=== PATIENT | female | born 1965 | race Caucasian/White ===

== ENCOUNTER → 2018-03-14 | Outpatient (CLI) | payer OTHER ==
[2018-03-14 18:19] LABS: ALBUMIN 3.7 gm/dl (3.1-4.5); ALKALINE PHOSPHATASE 131 U/L (45-117); BUN 23 mg/dl (7-24); CHLORIDE 106 mmol/L (98-107); CREATININE 0.91 mg/dL (0.55-1.02); POTASSIUM 4.1 mmol/L (3.5-5.1); SGOT/AST 36 IU/L (3-35); SGPT/ALT 60 U/L (12-78); SODIUM 142 mmol/L (136-145); TOTAL PROTEIN 7.2 gm/dL (6.4-8.2)
== END | disposition home or self-care (01) ==
LOC: LAB 17:30
PROVIDERS: Nurse Practitioner Primary Care
DX: R53.83 Other fatigue (principal); R63.8 Other symptoms and signs concerning food and fluid intake

== ENCOUNTER → 2018-04-19 | Outpatient (CLI) | payer OTHER ==
[~2018-04-19] MED LIST: CORTEF10 M1 PO; CORTEF5 M1 PO; PROZAC20 MG PO
[2018-04-19 07:45] VITALS: BP 126/37
[2018-04-19 08:16] LABS: BASO % 0.4 % (0.0-1.0); EOS # 0.4 10*3/uL (0.0-0.4); EOS % 5.5 % (1.0-4.0); HEMATOCRIT 43.5 % (37.0-47.0); HEMOGLOBIN 14.3 g/dl (12.0-16.0); LYMPH # 2.1 10*3/uL (1.3-4.4); LYMPH % 29.4 % (27.0-41.0); MEAN CELL VOLUME 95.2 fl (81.0-99.0); MEAN CORPUSCULAR HGB 31.3 pg (27.0-31.0); MEAN CORPUSCULAR HGB CONC 32.9 g/dl (33.0-37.0); MEAN PLATELET VOLUME 10.7 fl (9.6-12.3); MONO # 0.5 10*3/uL (0.1-1.0); MONO % 7.3 % (3.0-9.0); NEUT % 57.1 % (47.0-73.0); PLATELET COUNT AUTOMATED 315 10*3/uL (130-400); RED BLOOD COUNT 4.57 10*6/uL (4.10-5.10)
[2018-04-19 08:21] LABS: ALBUMIN 3.6 gm/dl (3.1-4.5); ALKALINE PHOSPHATASE 116 U/L (45-117); BUN 18 mg/dl (7-24); CHLORIDE 104 mmol/L (98-107); CREATININE 0.89 mg/dL (0.55-1.02); FREE T4 0.75 ng/dl (0.76-1.46); POTASSIUM 3.9 mmol/L (3.5-5.1); SGOT/AST 59 IU/L (3-35); SGPT/ALT 77 U/L (12-78); SODIUM 139 mmol/L (136-145); TOTAL PROTEIN 7.2 gm/dL (6.4-8.2)
[2018-04-19 08:50] VITALS: BP 126/52
[2018-04-20 08:11] LABS: FOLLICLE STIMULATING HORMONE 96.9 mIU/mL (.); LUTEINIZING HORMONE 004283 64.5 mIU/mL (.); PROLACTIN 004465 13.4 ng/mL (4.8-23.3)
[2018-04-20 15:11] LABS: CORTISOL BASELINE 20.3 ug/dL (.); CORTISOL STIMULATED 60 MIN 24.3 ug/dL (Not Estab.)
[2018-04-21 00:08] LABS: HUMAN GROWTH HORMONE 0.4 ng/mL (0.0-10.0)
[2018-05-07 01:05] LABS: ALDOSTERONE #1 7.8 ng/dL (0.0-30.0); ALDOSTERONE #2 25.6 ng/dL (Not Estab.); ALDOSTERONE #3 28.3 ng/dL (Not Estab.)
== END | disposition home or self-care (01) ==
LOC: LAB 04:15 → INJECTION 08:00
PROVIDERS: Internal Medicine Endocrinology, Diabetes & Metabolism
DX: R63.8 Other symptoms and signs concerning food and fluid intake (principal)

== ENCOUNTER → 2018-05-08 | Outpatient (CLI) | payer OTHER | END | disposition home or self-care (01) | LOC: LAB 08:22 | DX: E27.40 Unspecified adrenocortical insufficiency (principal) ==

== ENCOUNTER → 2018-10-15 | Outpatient (CLI) | payer OTHER | END | disposition home or self-care (01) | LOC: RAD 14:09 | DX: M06.842 Other specified rheumatoid arthritis, left hand (principal); M06.841 Other specified rheumatoid arthritis, right hand; M19.072 Primary osteoarthritis, left ankle and foot; M19.071 Primary osteoarthritis, right ankle and foot; G89.29 Other chronic pain ==

== ENCOUNTER → 2018-11-16 | Outpatient (CLI) | payer OTHER | END | disposition home or self-care (01) | LOC: US 09:10 → MAMMO 09:10 | DX: R94.5 Abnormal results of liver function studies (principal) ==

== ENCOUNTER → 2018-12-10 | Outpatient (CLI) | payer OTHER | END | disposition home or self-care (01) | LOC: RAD 11-08 11:00 | DX: Z12.31 Encounter for screening mammogram for malignant neoplasm of breast (principal); Z13.820 Encounter for screening for osteoporosis; M25.561 Pain in right knee; G89.29 Other chronic pain; N95.1 Menopausal and female climacteric states; E55.9 Vitamin D deficiency, unspecified; Z72.0 Tobacco use ==

== ENCOUNTER → 2019-06-06 | Outpatient (CLI) | payer OTHER | END | disposition home or self-care (01) | LOC: MRI 00:17 | DX: M54.40 Lumbago with sciatica, unspecified side (principal) ==

== ENCOUNTER → 2019-06-12 | Outpatient (CLI) | payer OTHER | END | disposition home or self-care (01) | LOC: RAD 00:20 | DX: D72.829 Elevated white blood cell count, unspecified (principal); R73.03 Prediabetes; R05 Cough; F17.200 Nicotine dependence, unspecified, uncomplicated ==

== ENCOUNTER 2019-11-14 11:24 | Emergency (ER) | payer OTHER ==
[~2019-11-14] VITALS: Ht 165.1 cm; Wt 66.7 kg
[2019-11-14 12:15] LABS: BASO % 0.4 % (0.0-1.0); EOS # 0.1 10*3/uL (0.0-0.4); EOS % 1.7 % (1.0-4.0); HEMATOCRIT 44.3 % (37.0-47.0); LYMPH # 1.5 10*3/uL (1.3-4.4); LYMPH % 21.2 % (27.0-41.0); MEAN CELL VOLUME 93.7 fl (81.0-99.0); MEAN CORPUSCULAR HGB CONC 32.1 g/dl (33.0-37.0); MEAN PLATELET VOLUME 10.3 fl (9.6-12.3); MONO # 0.5 10*3/uL (0.1-1.0); MONO % 6.9 % (3.0-9.0); NEUT # 4.9 10*3/uL (2.3-7.9); NEUT % 69.7 % (47.0-73.0); PLATELET COUNT AUTOMATED 280 10*3/uL (130-400); RED BLOOD COUNT 4.73 10*6/uL (4.10-5.10); RED CELL DISTRI WIDTH 12.8 % (0-14.5)
[2019-11-14 12:29] LABS: ALBUMIN 3.7 gm/dl (3.1-4.5); ALKALINE PHOSPHATASE 155 U/L (45-117); BUN 9 mg/dl (7-24); CHLORIDE 103 mmol/L (98-107); POTASSIUM 3.4 mmol/L (3.5-5.1); SGOT/AST 37 IU/L (3-35); SGPT/ALT 60 U/L (12-78); SODIUM 138 mmol/L (136-145); TOTAL PROTEIN 7.9 gm/dL (6.4-8.2)
== END 2019-11-14 14:06 | disposition home or self-care (01) ==
LOC: ED 11:24
PROVIDERS: Physician Assistant
DX: B34.9 Viral infection, unspecified (principal); R19.7 Diarrhea, unspecified; Z88.8 Allergy status to other drugs, medicaments and biological substances; Z79.899 Other long term (current) drug therapy